=== PATIENT | female | born 1985 | race Caucasian/White ===

== ENCOUNTER → 2021-07-19 | Outpatient (CLI) | payer BC, MEDICAID ==
[2021-07-19 08:36] LABS: BASO # 0.09 (0.02-0.10); EOS # 0.08 (0.04-0.40); EOS % 1.4 % (1.0-5.0); HEMATOCRIT 40.2 % (37.0-47.0); HEMOGLOBIN 13.4 g/dL (12.5-16.0); LYMPH# 1.49 (1.50-4.00); MEAN CELL VOLUME 95 fl (78-100); MEAN CORPUSCULAR HEMOGLOBIN 32 pg (27-31); MEAN CORPUSCULAR HGB CONC 33 g/dL (33-37); MONO # 0.53 (0.20-0.80); PLATELET COUNT 256 K/mm3 (130-400); RED BLOOD COUNT 4.23 M/mm3 (4.10-5.30); RED CELL DISTRIBUTION WIDTH 12.4 % (11.5-14.5); WHITE BLOOD COUNT 5.6 K/mm3 (4.8-10.8)
[2021-07-19 08:44] LABS: ALBUMIN 4.2 g/dL (3.5-5.0); POTASSIUM 4.2 mmol/L (3.5-5.1)
[2021-07-19 08:45] LABS: CALCIUM 9.4 mg/dL (8.3-10.5)
[2021-07-19 08:46] LABS: TOTAL PROTEIN 7.6 g/dL (6.4-8.3)
[2021-07-19 08:48] LABS: TOTAL BILIRUBIN 0.4 mg/dL (0.2-1.2)
== END ==
LOC: LAB 08:21
PROVIDERS: Nurse Practitioner
DX: R10.9 Unspecified abdominal pain (principal)

== ENCOUNTER 2024-11-02 10:03 | Emergency (ER) | payer BC ==
[~2024-11-02] VITALS: Ht 162.6 cm; Wt 64.1 kg
[2024-11-02 10:19] LABS: BASO # 0.05 K/mm3 (0.02-0.10); EOS # 0.05 K/mm3 (0.04-0.40); EOS % 0.5 % (1.0-5.0); HEMATOCRIT 41.1 % (37.0-47.0); LYMPH# 2.12 K/mm3 (1.50-4.00); MEAN CELL VOLUME 99 fl (78-100); MEAN CORPUSCULAR HEMOGLOBIN 34 pg (27-31); MEAN CORPUSCULAR HGB CONC 34 g/dL (33-37); MEAN PLATELET VOLUME 9.5 fl (7.4-10.4); MONO # 0.78 K/mm3 (0.20-0.80); NEU # 6.77 K/mm3 (1.40-6.50); PLATELET COUNT 221 K/mm3 (130-400); RED BLOOD COUNT 4.16 M/mm3 (4.10-5.30); RED CELL DISTRIBUTION WIDTH 11.7 % (11.5-14.5); WHITE BLOOD COUNT 9.8 K/mm3 (4.8-10.8)
[2024-11-02] MEDS ORDERED: METOPROLOL SUCC50 M1 PO (10:23)
[2024-11-02 10:27] LABS: ALBUMIN 4.7 g/dL (3.5-5.0); SODIUM 140 mmol/L (136-145)
[2024-11-02 10:28] LABS: CALCIUM 10.2 mg/dL (8.3-10.5)
[2024-11-02 10:29] LABS: GLUCOSE 90 mg/dL (65-105); TOTAL PROTEIN 7.7 g/dL (6.4-8.3)
[2024-11-02 10:30] LABS: CARBON DIOXIDE 21 mmol/L (22-29)
[2024-11-02] MEDS ORDERED: Ketorolac 30 MG/ML VIAL IV ONE (10:30)
[2024-11-02 10:31] LABS: TOTAL BILIRUBIN 0.5 mg/dL (0.2-1.2)
[2024-11-02 10:35] LABS: AST-SGOT 38 U/L (5-34)
[2024-11-02 10:36] LABS: ALT/SGPT 34 U/L (0-55)
[2024-11-02 10:42] LABS: TROPONIN-I < 0.030 ng/mL (0.00-0.033)
[2024-11-02 11:24] VITALS: BP 117/62
== END 2024-11-02 11:29 | disposition home or self-care (01) ==
LOC: ED 10:03
PROVIDERS: Family Medicine
DX: M94.0 Chondrocostal junction syndrome [Tietze] (principal); F17.210 Nicotine dependence, cigarettes, uncomplicated
CPT/HCPCS: J1885